=== PATIENT | female | born 1950 | race Caucasian/White ===

== ENCOUNTER 2018-08-08 11:33 | Outpatient (CLI) | payer MEDICARE ==
--- NOTE | 2018-08-08 15:52 | RAD ---
SINGLE COLUMN BARIUM ENEMA: HISTORY: Incomplete colonoscopy. COMPARISON: None. FINDINGS: Initial abdomen supine and upright orderly radiograph demonstrate a nonspecific bowel gas pattern. No pneumoperitoneum. Lumbar fusion hardware is noted. Single-column barium enema was performed. Contrast passes without any difficulty into the cecum. 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 There are a few scattered diverticulum in the sigmoid colon. There is a polyp in the proximal descen ding colon. IMPRESSION: 1. No evidence of obstruction. 2. Small polyp in the proximal descending colon likely measuring approximately 8 mm. 3. Scattered diverticula in the sigmoid colon. POS: [facility]
== END 2018-08-08 11:34 | disposition home or self-care (01) ==
LOC: RAD 11:33
PROVIDERS: ATTEND Internal Medicine Gastroenterology
DX: Z12.11 Encounter for screening for malignant neoplasm of colon (principal); K63.5 Polyp of colon; K57.30 Diverticulosis of large intestine without perforation or abscess without bleeding; Z98.890 Other specified postprocedural states; Z86.010 Personal history of colon polyps
CPT/HCPCS: 74270

== ENCOUNTER 2022-01-05 10:06 | Outpatient (CLI) | payer MEDICARE | END 2022-01-05 10:07 | disposition home or self-care (01) | LOC: BICRAD 10:06 | PROVIDERS: ATTEND Internal Medicine | DX: M79.641 Pain in right hand (principal); M79.642 Pain in left hand ==

== ENCOUNTER 2024-02-25 08:45 | Outpatient (CLI) | payer MEDICARE | END 2024-02-25 08:46 | disposition home or self-care (01) | LOC: PET 08:45 | PROVIDERS: ATTEND Internal Medicine Hematology & Oncology | DX: C82.11 Follicular lymphoma grade II, lymph nodes of head, face, and neck (principal); R22.0 Localized swelling, mass and lump, head; R94.8 Abnormal results of function studies of other organs and systems | CPT/HCPCS: 78815; A9552 ==

== ENCOUNTER 2024-07-27 08:00 | Outpatient (CLI) | payer MEDICARE | END 2024-07-27 08:01 | disposition home or self-care (01) | LOC: PET 08:00 | PROVIDERS: ATTEND Radiology Radiation Oncology | DX: C82.61 Cutaneous follicle center lymphoma, lymph nodes of head, face, and neck (principal); R59.0 Localized enlarged lymph nodes | CPT/HCPCS: 78815; A9552 ==

== ENCOUNTER 2024-09-26 08:00 | Outpatient (CLI) | payer MEDICARE | END 2024-09-26 08:01 | disposition home or self-care (01) | LOC: PET 08:00 | PROVIDERS: ATTEND Internal Medicine Hematology & Oncology | DX: C82.11 Follicular lymphoma grade II, lymph nodes of head, face, and neck (principal); R59.0 Localized enlarged lymph nodes | CPT/HCPCS: 78815; A9552 ==

== ENCOUNTER → 2024-09-27 | Day surgery (SDC) | payer MEDICARE ==
[~2024-09-27] MED LIST: Lidocaine 1% PF 5 ML VIAL ONE; Midazolam HCl 2 mg/2 ml Vial ONE; Sodium Bicarbonate 2.5 MEQ/5 ML SDV ONE; fentaNYL 50 mcg/mL 1 mL Vial ONE
[2024-09-27 08:17] LABS: #Basophils 0.03 10x3/uL (0.0-0.2); #Eosinophils Less than 0.03 10x3/uL (0.0-0.7); %Basophils 0.2 % (0.0-1.0); %Eosinophils 0.2 % (0.0-10.0); %Lymphocytes 17.1 % (21.0-51.0); %Monocytes 7.8 % (0.0-10.0); %Neutrophils 74.3 % (42.0-75.0); Hematocrit 39.5 % (36.0-47.0); Mean Corpuscular HGB CONC 32.9 g/dL (32.0-36.0); Mean Corpuscular Hemoglobin 29.1 pg (27.0-31.0); Mean Corpuscular Volume 88.6 fL (78.0-98.0); Mean Platelet Volume 9.1 fL (7.4-10.4); Platelet Count 339 10x3/uL (130-400); RBC Distribution Width 13.4 % (11.5-14.5); Red Blood Cell (RBC) Count 4.46 mill/uL (4.20-5.40)
[2024-09-27 08:34] LABS: INR-International Normal Ratio 1.1; PTT 29.9 sec (22.9-36.1)
== END ==
LOC: CT 07:55
PROVIDERS: ATTEND Internal Medicine Hematology & Oncology
PROC: 079T3ZX Drainage of Bone Marrow, Percutaneous Approach, Diagnostic (ICD-10-PCS; principal; 2024-09-27)
DX: D70.4 Cyclic neutropenia (principal); R59.0 Localized enlarged lymph nodes; E78.5 Hyperlipidemia, unspecified; M79.7 Fibromyalgia; M19.90 Unspecified osteoarthritis, unspecified site; Z85.828 Personal history of other malignant neoplasm of skin; Z90.49 Acquired absence of other specified parts of digestive tract; Z90.722 Acquired absence of ovaries, bilateral; Z90.710 Acquired absence of both cervix and uterus; Z79.899 Other long term (current) drug therapy
CPT/HCPCS: 38222; 77012 ×2; 85025; 85097; 85610; 85730; J2250; 88184; 88185; 88189; 88237; 88264; 88280; 88305; 88311; 88341; 88342; 99152; 99153; J3010

== ENCOUNTER 2025-08-14 13:18 | Outpatient (CLI) | payer MEDICARE ==
[2025-08-14 14:48] LABS: #Basophils 0.05 10x3/uL (0.0-0.2); #Eosinophils 0.08 10x3/uL (0.0-0.7); #Monocytes 0.51 10x3/uL (0.11-0.59); #Neutrophils 3.73 10x3/uL (1.40-6.50); %Basophils 0.9 % (0.0-1.0); %Eosinophils 1.5 % (0.0-10.0); %Lymphocytes 19.0 % (21.0-51.0); %Monocytes 9.4 % (0.0-10.0); %Neutrophils 69.0 % (42.0-75.0); Hematocrit 37.3 % (36.0-47.0); Hemoglobin 12.1 g/dL (12.0-16.0); Mean Corpuscular Hemoglobin 30.1 pg (27.0-31.0); Mean Corpuscular Volume 92.8 fL (78.0-98.0); Platelet Count 300 10x3/uL (130-400); Red Blood Cell (RBC) Count 4.02 mill/uL (4.20-5.40); White Blood Cell (WBC) Count 5.41 10x3/uL (4.8-10.8)
[2025-08-14 15:07] LABS: Anion Gap 14 mmol/L (10-20); BUN (Urea Nitrogen) 15 mg/dL (9.8-20.1); Calc. Creatinine Clearance 0 mL/min (70-130); Calcium 9.4 mg/dL (7.8-10.44); Carbon Dioxide 26 mmol/L (23-31); Chloride 107 mmol/L (98-107); Glucose 103 mg/dL (83-110); Potassium 4.1 mmol/L (3.5-5.1); Sodium 143 mmol/L (136-145)
== END 2025-08-14 13:19 | disposition home or self-care (01) ==
LOC: LABBT 13:18
PROVIDERS: ATTEND Orthopaedic Surgery
DX: Z01.818 Encounter for other preprocedural examination (principal); M65.331 Trigger finger, right middle finger; R22.31 Localized swelling, mass and lump, right upper limb
CPT/HCPCS: 71046; 80048; 85025

== ENCOUNTER 2025-08-16 05:58 | Day surgery (SDC) | payer MEDICARE ==
[2025-08-14 13:31] VITALS: BMI 20.9
[2025-08-16] MEDS ORDERED: fentaNYL PF 100 MCG/2 ML SYRINGE ONE (06:53)
[2025-08-16] MEDS ORDERED: Lidocaine 1% PF 5 ML VIAL ONE (06:53)
[2025-08-16] MEDS ORDERED: Ondansetron PF 4 MG/2 ML Vial ONE (06:54)
[2025-08-16] MEDS ORDERED: PROPOFOL 200 MG/20 ML VIAL ONE (08:06)
== END 2025-08-16 10:18 | disposition home or self-care (01) ==
LOC: SDC 05:58
PROVIDERS: ATTEND Orthopaedic Surgery
PROC: 0LN70ZZ Release Right Hand Tendon, Open Approach (ICD-10-PCS; principal; 2025-08-16)
DX: M65.331 Trigger finger, right middle finger (principal); R22.31 Localized swelling, mass and lump, right upper limb; Z88.0 Allergy status to penicillin; Z88.1 Allergy status to other antibiotic agents; Z88.2 Allergy status to sulfonamides; Z88.8 Allergy status to other drugs, medicaments and biological substances; Z90.710 Acquired absence of both cervix and uterus; Z98.890 Other specified postprocedural states; Z90.49 Acquired absence of other specified parts of digestive tract
CPT/HCPCS: 26055; 26115; A6223; J1100; J2405; J2704; J3490; 88304